=== PATIENT | male | born 1965 | race Hispanic/Latino ===

== ENCOUNTER 2016-06-27 09:27 | Day surgery (SDC) | payer OTHER ==
[2016-06-27 09:55] VITALS: BMI 22.6
[2016-06-27 10:25] VITALS: O2SAT 100
[2016-06-27] MEDS ORDERED: Propofol 10 mg/ml Inj (20 ML) ONE ×2 (11:48→12:07)
[2016-06-27] MEDS ORDERED: Lactated Ringer's 500 ML IV ONE (11:49)
[2016-06-27 13:31] VITALS: BP 101/58; PULSE 59; RESP 16; TEMP 97.1
== END 2016-06-27 13:30 | disposition home or self-care (01) ==
LOC: C.ENDO 09:27
PROVIDERS: ATTEND Internal Medicine Gastroenterology
DX: Z12.11 Encounter for screening for malignant neoplasm of colon (principal); K57.30 Diverticulosis of large intestine without perforation or abscess without bleeding; K64.8 Other hemorrhoids
CPT/HCPCS: 45380; 88305; J2704; J3010; J7120